=== PATIENT | male | born 1975 | race Caucasian/White ===

== ENCOUNTER 2018-07-01 15:25 | Emergency (ER) | payer OTHER ==
[2018-07-01] MEDS: HYDROCODONE/APAP (10/325) TAB PO (21:26)
== END 2018-07-01 21:25 | disposition home or self-care (01) ==
LOC: FTE 15:25
DX: S06.0X0A Concussion without loss of consciousness, initial encounter (principal); W22.8XXA Striking against or struck by other objects, initial encounter; Y92.9 Unspecified place or not applicable
CPT/HCPCS: 70450; 99284-25